=== PATIENT | male | born 1935 | race Caucasian/White ===

== ENCOUNTER → 2016-11-26 | Outpatient (CLI) | payer MEDICARE | END | disposition home or self-care (01) | LOC: GMAL 10:29 | PROVIDERS: ATTEND Family Medicine | DX: D51.3 Other dietary vitamin B12 deficiency anemia (principal); E55.9 Vitamin D deficiency, unspecified; Z12.5 Encounter for screening for malignant neoplasm of prostate | CPT/HCPCS: 82306; 82607; G0103 ==

== ENCOUNTER → 2017-10-04 | Outpatient (CLI) | payer MEDICARE | LOC: GMAL 12:08 | PROVIDERS: ATTEND Family Medicine | DX: R53.81 Other malaise (principal) ==

== ENCOUNTER → 2018-01-10 | Outpatient (CLI) | payer MEDICARE | LOC: GMAL 11:01 | PROVIDERS: ATTEND Family Medicine | DX: Z12.5 Encounter for screening for malignant neoplasm of prostate (principal) ==

== ENCOUNTER 2018-05-11 05:29 | Day surgery (SDC) | payer MEDICARE ==
[2018-05-11] MEDS ORDERED: LACTATED RINGERS 1,000 ML ONE (06:07)
[2018-05-11] MEDS ORDERED: LIDOCAINE 1% 10 ML VIAL INJ ONE (07:15)
[2018-05-11] MEDS ORDERED: PROPOFOL 200 MG/20 ML VIAL IV ONE (07:15)
--- NOTE | 2018-05-11 09:52 | OP ---
DATE OF PROCEDURE: 05/11/18 PREOPERATIVE DIAGNOSIS: 1. History of polyps. POSTOPERATIVE DIAGNOSIS: 1. Two colonic polyps. 2. Diverticulosis. 3. Internal hemorrhoids. PROCEDURE: 1. Colonoscopy plus polypectomy. SURGEON: Frankie Carreno MD. COMPLICATIONS: None apparent. BLOOD LOSS: None. MEDICATIONS: Monitored anesthesia care. INDICATION: The patient is an 81-year-old gentleman who last underwent colonoscopy two years ago. Dr. Mckeon, his primary care physician, removed a few polyps at that time. 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 Mckeon asked me to repeat the colonoscopy to make sure there is no residual polyp tissue and no new polyps. Thus, we are proceeding with colonoscopy today. DESCRIPTION OF PROCEDURE: Informed consent was obtained prior to sedation. The preprocedure cardiopulmonary assessment was satisfactory. The patient was placed in the left lateral decubitus position and was sedated. A digital rectal exam reveals no rectal masses or other significant abnormalities. The tip of the Olympus colonoscope was inserted in the rectum and guided over to the cecum. The cecum was identified by locating the ileocecal valve and appendiceal orifice. Retroflexed view of the right colon was obtained by retroflexing there in the cecum. Prep was very good. The mucosa of the cecum, ascending colon, hepatic flexure, transverse colon, splenic flexure, descending colon and sigmoid colon was closely examined. Direct and retroflexed views of the rectum were obtained. I examined the mucosa closely, paying extra close attention in the cecum and the ascending colon which were the areas that Dr. Mckeon was most concerned about. There was no polyp tissue in the cecum. There was a 3 mm sessile polyp that looked like a serrated adenoma in the ascending colon. This was removed with a cold snare, but not recovered. There was a second polyp seen which was about 3 mm in size in the transverse colon. It had the appearance of a serrated adenoma. This was removed with cold snare, but not recovered. The rest of the colon was examined and all that we found were diverticula in the ascending colon and the left colon. Retroflexed view of the rectum revealed small internal hemorrhoids. The procedure was then terminated. As noted above, neither polyp was recovered. RECOMMENDATIONS: I do not think he needs a followup colonoscopy for screening and surveillance at the age fo 81. I would like for him to come back to see me in the office if any GI symptoms arise. #[id number] cc: Reynaldo Mckeon MD MTDD
[2018-05-11 11:15] VITALS: BP 144/64; TEMP 98.5; O2SAT 98
== END 2018-05-11 09:30 | disposition home or self-care (01) ==
LOC: AMB 05:29
PROVIDERS: ATTEND Internal Medicine Gastroenterology
DX: D12.2 Benign neoplasm of ascending colon (principal); D12.3 Benign neoplasm of transverse colon; K57.30 Diverticulosis of large intestine without perforation or abscess without bleeding; K64.8 Other hemorrhoids; G20 Parkinson's disease; E66.9 Obesity, unspecified; Z86.010 Personal history of colon polyps; Z79.899 Other long term (current) drug therapy
CPT/HCPCS: 00811; 45385; J3490; J7120

== ENCOUNTER → 2018-11-15 | Outpatient (CLI) | payer MEDICARE | LOC: GMAL 10:39 | PROVIDERS: ATTEND Family Medicine | DX: D51.3 Other dietary vitamin B12 deficiency anemia (principal); R53.81 Other malaise; E55.9 Vitamin D deficiency, unspecified; I10 Essential (primary) hypertension; E78.49 Other hyperlipidemia ==

== ENCOUNTER 2019-07-24 09:16 | Emergency (ER) | payer MEDICARE ==
--- NOTE | 2019-07-24 10:50 | RAD ---
XR CHEST 1 VIEW HISTORY: 83 years Male increased falling COMPARISON: None. TECHNIQUE: Single AP view of the chest. FINDINGS: Lungs: No focal consolidation, pleural effusion, or pneumothorax detected. Heart/Mediastinum: Heart size normal. Atherosclerotic changes are noted in the aorta. Bones: No acute abnormality detected. IMPRESSION: No evidence of an acute cardiopulmonary process. Electronically signed by: Jonathon Payne MD 07/24/2019 10:49 AM CDT
--- NOTE | 2019-07-24 10:59 | CT ---
CT HEAD WITHOUT IV CONTRAST HISTORY: 83 years Male incresed general weakness and falls, hx parkinsons COMPARISON: None. TECHNIQUE: Serial tomographic images of the brain were obtained without the use of intravenous contrast. This exam was performed according to our departmental dose-optimization program, which includes automated exposure control, adjustment of the mA and/or kV according to patient size and/or use of iterative reconstruction technique. FINDINGS: There is an approximately 3.6 x 2.3 x 2.5 cm space occupying hyperdense lesion centered in the left basal ganglia with central hypoattenuation suggestive of necrosis. There is resultant mild mass effect on the left lateral ventricle without definite herniation. No additional intracranial lesions are identified within the limits of this noncontrast exam. Diffuse cerebral volume loss is demonstrated. No hydrocephalus. Basal cisterns are patent. There are scattered atherosclerotic changes noted. There is an oval well-defined subcutaneous lesion in the left parietal scalp measuring up to 1.6 cm in diameter. Included orbits and their contents are unremarkable. Scattered paranasal sinus mucosal thickening. Included osseous structures demonstrate no acute process. IMPRESSION: Space occupying lesion centered in the left basal ganglia with mild mass effect but no definite herniation. Lesion measures up to approximately 3.6 cm in maximum diameter. Findings are concerning for malignancy, metastatic versus primary. No additional intracranial lesions are identified within the limits of this noncontrast CT. MRI with and without contrast is recommended for further evaluation. Well-defined oval subcutaneous lesion in the left parietal scalp favors benign process such as sebaceous cyst, although other etiologies including malignancy cannot be excluded. Senescent changes. Findings were discussed with the patient's provider, Dr. Rushing, at approximately 11:00 AM on 07/24/2019. Electronically signed by: Jonathon Payne MD 07/24/2019 10:57 AM CDT
--- NOTE | 2019-07-24 11:10 | ED.PDOC ---
History of Present Illness - General Chief Complaint: Neuro Symptoms/Deficits Stated Complaint: Right Arm/Leg weakness for 2 wks Time Seen by Provider: 07/24/19 09:17 Source: patient, family Exam Limitations: clinical condition - History of Present Illness Initial Comments: The patient is an 83-year-old male presented emergency room secondary to intermittent and variable weakness and discoordination to the right side of the last couple of weeks. The patient does have moderate advanced Parkinson's and does take medications for it which does somewhat confuse the picture. No syncope. No obvious trauma. Intermittent confusion. The patient does have chronically borderline low blood pressures even without any blood pressure medications or diuretics. This is no doubt made worse by the Parkinson's medications and the prostate medications. No fever. On exam here he shows good strength to the right upper and lower extremity. Mild discoordination but difficult to say whether that is Parkinson's or something else. The patient reports that he feels fine. He does have a little more edema to the right lower extremity than the left. He has been less active since the coronavirus has been in the area. Timing/Duration: other - 2 weeks Severity: mild Improving Factors: nothing Worsening Factors: movement Associated Symptoms: denies symptoms Allergies/Adverse Reactions: Allergies NO KNOWN ALLERGY Allergy (Verified 07/24/19 10:12) Home Medications: Ambulatory Orders Carbidopa-Levodopa [Carbidopa/Levodopa 25-100 mg] 1 tab PO BID 05/05/18 Cyanocobalamin [Vitamin B12] 1,000 mcg PO DAILY 05/05/18 Finasteride [Proscar] 5 mg PO DAILY 05/05/18 Methylfolate 1 tablet PO DAILY 05/05/18 Pramipexole Dihydrochloride [Pramipexole Dihydrochlori] 0.25 mg PO BID 05/05/18 Probiotic Product [Fortify Daily Probiotic] 1 cap PO DAILY 05/05/18 Vitamin B6 1 tablet PO DAILY 05/05/18 Review of Systems - Review of Systems Constitutional: States: no symptoms reported EENTM: States: see HPI - reports occasional mild slurred speech but no difficulty with swallowing. Respiratory: States: no symptoms reported Cardiology: States: no symptoms reported Gastrointestinal/Abdominal: States: no symptoms reported Genitourinary: States: no symptoms reported Musculoskeletal: States: see HPI Skin: States: no symptoms reported Neurological: States: see HPI Endocrine: States: no symptoms reported All other Systems: No Change from Baseline Past Medical History (General) - Patient Medical History Hx Congestive Heart Failure: No Hx Diabetes: No Hx MRSA: No Surgical History: no surgical history - Vaccination History Hx Influenza Vaccination: No Hx Pneumococcal Vaccination: Yes - Activities of Daily Living Hospice Agency (if applicable):: None - Female History Patient is a Female of Child Bearing Age (10 -59 yrs old): No - Triage Comment ED Triage Comment: right arm and leg weakness that has worsened over the last few weeks. pt voices fall 1.5 weeks ago. pt has parkinsons Family Medical History - Family History Mother Living Status: Hx Cardiac Disease: Yes Physical Exam - Physical Exam General Appearance: Alert, Comfortable, No apparent distress Eye Exam: bilateral normal Ears, Nose, Throat: hearing grossly normal, normal ENT inspection Neck: full range of motion, supple Respiratory: lungs clear, normal breath sounds, no respiratory distress, no accessory muscle use Cardiovascular/Chest: normal peripheral pulses, no edema, other - Regular rate Peripheral Pulses: radial,right: 2+, radial,left: 2+ Gastrointestinal/Abdominal: non tender, soft Rectal Exam: deferred Back Exam: no CVA tenderness, no vertebral tenderness Extremity: normal range of motion - Normal passive range of motion., non-tender, no calf tenderness, normal capillary refill, pedal edema - +1 pedal edema to the right lower extremity Neurologic: cane feeder II-XII nml as tested, alert, oriented x 3, other - Chronic changes related to Parkinson's including masked faces Skin Exam: normal color Comments: Vital Signs - 24 hr 07/24/19 07/24/19 10:00 10:03 Temperature 97.7 F Pulse Rate [ 66 66 brachial] Respiratory 18 18 Rate Blood Pressure 122/66 [Left Arm] O2 Sat by Pulse 98 Oximetry 07/24/19 10:03 Telemetry .CONTINUOUS Vital Signs-Tilt PRN 07/24/19 10:15 EKG STAT sinus bradycardia 52 bpm. Normal axis. Interventricular conduction delay most consistent with a left bundle branch block. First-degree AV block. Difficult to assess otherwise. Chest x-ray shows no acute pathology. CT scan of the head shows a left basal ganglia mass about 3 and half centimeters in maximal diameter with mild mass-effect but no herniation. Likely also a scalp subcutaneous sebaceous cyst. 07/24/19 10:59 UA [URINALYSIS] Stat Laboratory Results - last 24 hr 07/24/19 07/24/19 10:10 10:10 WBC 6.1 RBC 4.59 L Hgb 15.1 Hct 44.4 MCV 96.6 H MCH 32.8 H MCHC 34.0 RDW 13.3 Plt Count 169 MPV 7.7 Absolute Neuts (auto) 3.60 Absolute Lymphs (auto) 1.40 Absolute Monos (auto) 0.40 Absolute Eos (auto) 0.60 H Absolute Basos (auto) 0.10 Neutrophils % 59.4 Lymphocytes % 23.1 Monocytes % 6.9 Eosinophils % 9.4 H Basophils % 1.2 Sodium 137 Potassium 3.9 Chloride 105 Carbon Dioxide 25 Anion Gap 10.9 L BUN 17 Creatinine 0.96 BUN/Creatinine Ratio 17.7 Random Glucose 114 H Serum Osmolality 276.2 Calcium 8.8 Magnesium 1.9 Total Bilirubin 0.8 AST 21 ALT < 8 L Alkaline Phosphatase 47 Creatine Kinase 52 CK-MB (CK-2) 2.9 CK-MB (CK-2) % Not Reportable Troponin I < 0.02 B-Natriuretic Peptide 38.2 Serum Total Protein 5.7 L Albumin 3.6 Globulin 2.1 L Albumin/Globulin Ratio 1.7 Progress - Progress Progress: 07/24/19 11:13 The patient is an 83-year-old male presented emergency room secondary to family's reports of some right-sided weakness over the last couple of weeks as well as some mild intermittent confusion. The patient does have baseline Parkinson's which makes it more difficult to tell. Work-up here shows that the patient has about a 3-1/2 cm mass to the left basal ganglia. This is a new diagnoses. Outpatient MRI is recommended for further characterization if desired. The patient is in no acute distress at this time. I am going to have the patient and his follow back up with their primary care doctor to discuss further potential work-up and therapeutic options. They have agreed to this. Additionally the patient does have some mild orthostasis. In regards to this when he goes to stand up he does need to hold onto something for 10 or 15 seconds before taking off walking. He is not on any diuretics or blood pressure medications that can be held. His Parkinson's and prostate medications are likely complicating this problem however they are necessary. Ambulate carefully to prevent falls. ER warnings are given. samir sweet [id number] Departure - Departure Clinical Impression: Intracranial mass, Orthostasis Disposition: Discharge to Home or Self Care Condition: Fair Departure Forms: ED Discharge - Pt. Copy, Patient Portal Self Enrollment Instructions: Brain Tumor, Adult (DC), Orthostatic Hypotension (DC) Diet: regular diet Activity: increase activity as tolerated Referrals: Reynaldo Mckeon III, MD [Primary Care Provider] - 1-2 Days Home Medications: Ambulatory Orders Carbidopa-Levodopa [Carbidopa/Levodopa 25-100 mg] 1 tab PO BID 05/05/18 Cyanocobalamin [Vitamin B12] 1,000 mcg PO DAILY 05/05/18 Finasteride [Proscar] 5 mg PO DAILY 05/05/18 Methylfolate 1 tablet PO DAILY 05/05/18 Pramipexole Dihydrochloride [Pramipexole Dihydrochlori] 0.25 mg PO BID 05/05/18 Probiotic Product [Fortify Daily Probiotic] 1 cap PO DAILY 05/05/18 Vitamin B6 1 tablet PO DAILY 05/05/18 Additional Instructions: The patient is an 83-year-old male presented emergency room secondary to family's reports of some right-sided weakness over the last couple of weeks as well as some mild intermittent confusion. The patient does have baseline Parkinson's which makes it more difficult to tell. Work-up here shows that the patient has about a 3-1/2 cm mass to the left basal ganglia. This is a new diagnoses. Outpatient MRI is recommended for further characterization if desired. The patient is in no acute distress at this time. I am going to have the patient and his follow back up with their primary care doctor to discuss further potential work-up and therapeutic options. They have agreed to this. Additionally the patient does have some mild orthostasis. In regards to this when he goes to stand up he does need to hold onto something for 10 or 15 seconds before taking off walking. He is not on any diuretics or blood pressure medications that can be held. His Parkinson's and prostate medications are likely complicating this problem however they are necessary. Ambulate carefully to prevent falls. ER warnings are given.
[2019-07-24 11:15] VITALS: O2SAT 99
[2019-07-24 11:34] VITALS: BP 141/57; TEMP 97.2
== END 2019-07-24 11:35 | disposition home or self-care (01) ==
LOC: ER 09:16
DX: D49.6 Neoplasm of unspecified behavior of brain (principal); R53.1 Weakness; G20 Parkinson's disease

== ENCOUNTER → 2019-07-25 | Outpatient (CLI) | payer MEDICARE ==
--- NOTE | 2019-07-25 14:58 | MRI ---
EXAM DESCRIPTION: Brain w/wo Contrast: Magnetic Resonance Imaging. CLINICAL HISTORY: 83 years Male TRANSIENT CEREBRAL ISCHEMIC ATTACK UNSPEC. COMPARISON: CT scan of the head July 23. TECHNIQUE: Multiplanar, high-field MRI, multiple conventional sequences, without and with gadolinium IV contrast. No adverse reactions. Multiple axial diffusion sequences. FINDINGS: Irregularly shaped mass in the left basal ganglia area extending along the left frontal osman radiata with irregular enhancement. Greatest dimensions are 3.2 x 2.7 cm in the transverse plane and 3.2 cm craniocaudal parallel to the brainstem. Inferior extent of the mass is the left inferior cerebral peduncle. The mass is not uniformly enhancing with focal nonenhancing areas including central round, subcentimeter lesion, which shows central hyperintensity and peripheral hypointensity on the T2*gradient image. This tissue is bright on diffusion images, T2 and T1 images and low-density on 3-D images with or without contrast. The mass is isointense to slightly hyperintense on diffusion images. Moderate cerebral edema and mass effect on the left basal ganglia, left ventricle, third ventricle with slight left midline shift. Mass effect also on the left osman radiata fibers. Mass effect also on the left uncus and hippocampus with cerebral edema which is also involving the anterior medial left temporal lobe., Small foci of hyperintense FLAIR and T2-weighted signal in the subcortical white matter in the bilateral frontal lobes and in the periventricular white matter abutting the frontal horns of the head and occipital horns of the lateral ventricles. Not associated with hemorrhage, mass effect, or contrast enhancement.. Normal signal in the right basal ganglia. No hemorrhage, no cerebral edema, no mass-effect. Normal contrast enhancement. Normal signal in the brainstem and cerebellar hemispheres. No hemorrhage, no cerebral edema. No tonsillar mass or some tonsillar herniation. Mass effect on the left inferior cerebral peduncle as previously described.. Normal contrast enhancement. Largest Concordance of the diffusion and non-diffusion sequences with no evidence of acute or subacute infarction. Cortical sulci, ventricles, and other CSF spaces, and the subdural spaces are normally configured for patients age. No effacement or displacement. No midline shift. No extra-axial hemorrhage. Normal contrast enhancement. Normal flow signal void in the major vessels of the [place], and the venous sinuses. Minimal mass effect on the supraclinoid left ICA and proximal branches of the left MCA. IACs are symmetric bilaterally. No fluid in the right mastoid air cells. No mass effect in the Cerebellopontine angles. Normal contrast enhancement. Pituitary gland occupies most of the sella. Normal contrast enhancement. Base of the cerebellar tonsils is at the level of the foramen magnum. Mucoperiosteal thickening in multiple paranasal sinuses. No air-fluid levels. Circumscribed 1.5 x 1.0 cm mass in the outer table of the left occipital bone protruding slightly into the scalp. Intracranial contents with no enhancement. Bony calvarium is intact. IMPRESSION: 1. Partially circumscribed, minimally heterogeneous- enhancing mass in the left basal ganglia extending into the superior left inferior cerebral peduncle and coursing upward in the left frontal osman radiata. Largest axis is 3.2 cm anteroposterior and craniocaudal, with central nonacute hemorrhage and nonenhancement. Extensive white matter edema in the tracks superior and inferior, also involving the left uncus, hippocampus, and medial left temporal lobe white matter. Mild right midline shift and mass effect on the ventricles. No mass in the posterior fossa and no cerebral tonsillar herniation. Differential includes primary glioma or astrocytoma, metastatic disease with hemorrhagic component, such as malignant melanoma, or renal cell cancer. Infectious or inflammatory lesion unlikely. 2. Circumscribed lesion in the outer table of the left occipital bone protruding into the scalp. Most likely a benign lesion. 3. Minimal white matter lesions related to aging/cerebral microvascular disease. No extra-axial hemorrhage. Electronically signed by: Omega Nieto MD 07/25/2019 2:56 PM CDT
== END ==
LOC: MRI 08:32
PROVIDERS: ATTEND Family Medicine
DX: G45.9 Transient cerebral ischemic attack, unspecified (principal); G93.9 Disorder of brain, unspecified; G93.6 Cerebral edema; M89.8X8 Other specified disorders of bone, other site

== ENCOUNTER → 2019-07-27 | Outpatient (CLI) | payer MEDICARE ==
--- NOTE | 2019-07-27 09:15 | CT ---
EXAM DESCRIPTION: Chest w/wo Contrast CLINICAL HISTORY: SECONDARY MALIGNANT NEPLASM OF BRAIN COMPARISON: None. TECHNIQUE: Pre and postcontrast CT images of the chest are obtained. This exam was performed according to our departmental dose-optimization program, which includes automated exposure control, adjustment of the mA and/or kV according to patient size and/or use of iterative reconstruction technique . FINDINGS: The heart is enlarged. Moderate coronary artery calcifications are seen. Mild scattered calcified plaque of the thoracic aorta. Calcified lymph nodes in the left suprahilar to AP window region are seen. No pathologically enlarged mediastinal, hilar, or axillary lymphadenopathy is seen. Lungs are mildly hypoaerated. Mild elevation of the right hemidiaphragm. Linear interstitial thickening in the mid to inferior right lower lobe. Mild interstitial thickening is seen in the left lung base. Calcified 6 mm pulmonary nodule in the mid left upper lobe is seen. No worrisome noncalcified pulmonary nodules. Osseous structures show no aggressive bony lesions. Moderate spondylitic changes of seen. IMPRESSION: Cardiomegaly. Moderate coronary artery calcifications are seen. Lungs are mildly hypoaerated with linear areas of scarring or atelectasis in the lower lobes. Evidence of old granulomatous disease is seen. No CT evidence of primary neoplastic process in the chest. Electronically signed by: Jass Pritchett MD 07/27/2019 9:14 AM CDT
--- NOTE | 2019-07-27 09:53 | CT ---
EXAM DESCRIPTION: Abdomen/Pelvis w/wo Contrast CLINICAL HISTORY: SECONDARY MALIGNANT NEOPLASM OF BRAIN COMPARISON: CT chest same day TECHNIQUE: Pre and postcontrast CT images of the abdomen and pelvis are obtained using standard imaging protocol. This exam was performed according to our departmental dose-optimization program, which includes automated exposure control, adjustment of the mA and/or kV according to patient size and/or use of iterative reconstruction technique . FINDINGS: The liver, spleen, pancreas, adrenal glands, and gallbladder are unremarkable. Mild to moderate calcified plaque of the arterial vasculature are seen. No nephrolithiasis. Kidneys show normal cortical enhancement. No ureteral calcification or obstruction. Urinary bladder is normally distended and unremarkable. Prostate is unremarkable. Small bilateral fat-containing inguinal hernias. The appendix is retrocecal and normal. Small hiatal hernia. The stomach is poorly distended. No mass lesion or inflammatory changes are seen. No small bowel obstruction or bowel wall thickening. Moderate scattered diverticuli of the descending to sigmoid colon are seen without associated inflammatory changes or fluid collections. Stool filled distention of the rectum measures 6.7 cm without bowel wall thickening or adjacent inflammation. Moderate fat-containing umbilical hernia. No pathologically enlarged abdominal or retroperitoneal lymphadenopathy. Borderline left periaortic lymph node measures 11 mm. Osseous structures show no aggressive bony lesions. Spondylitic changes of the spine are seen. IMPRESSION: No acute findings on pre and postcontrast CT imaging of the abdomen and pelvis. No primary neoplastic process of the abdomen and pelvis is seen. Mild fecal impaction in the rectal colon. Colon diverticulosis is seen without CT evidence of diverticulitis. Electronically signed by: Jass Pritchett MD 07/27/2019 9:51 AM CDT
== END ==
LOC: CT 07:51
PROVIDERS: ATTEND Family Medicine
DX: C79.31 Secondary malignant neoplasm of brain (principal); I51.7 Cardiomegaly; I25.10 Atherosclerotic heart disease of native coronary artery without angina pectoris; J98.4 Other disorders of lung; J84.10 Pulmonary fibrosis, unspecified; K56.41 Fecal impaction; K57.30 Diverticulosis of large intestine without perforation or abscess without bleeding